=== PATIENT | male | born 1965 | race Caucasian/White ===

== ENCOUNTER → 2021-01-01 12:43 | Outpatient (CLI) | payer OTHER, BC, SELFPAY ==
[2020-12-14 07:26] VITALS: BMI 27.8
--- NOTE | 2021-01-01 12:45 | MRI_ITS ---
STUDY: MRI RIGHT KNEE REASON FOR EXAM: Anterior/medial right knee pain for 3 to 4 weeks, no specific injury. TECHNIQUE: Standardized fat and water weighted pulse sequences were obtained in all 3 orthogonal planes. COMPARISON: Radiographs 12/08/2020. FINDINGS: There is a complex tear of the posterior horn/body of the medial meniscus (proton-density sagittal images 33-37; T2 coronal images 15, 16) with a small displaced fragment in the medial gutter (T2 coronal image 20). Normal hyaline cartilage of the medial femorotibial compartment. There is mild subchondral bone edema of the medial tibial plateau (T2 coronal images 17-19), a stress phenomenon. There is mild periligamentous inflammation of the medial collateral ligament (T2 coronal image 17). Normal distal semimembranosus, gracilis and semitendinosus tendons. Normal lateral meniscus. Normal hyaline cartilage of the lateral femorotibial compartment. Normal lateral femoral condyle and tibial plateau. Normal proximal tibiofibular articulation. Normal lateral collateral (fibular) ligament. Normal popliteus tendon. Normal biceps femoris tendon. Normal anterior cruciate ligament (ACL). Normal posterior cruciate ligament (PCL). Normal congruent patellofemoral articulation. Normal hyaline cartilage of the patellofemoral compartment. Normal medial and lateral patellar retinaculum. Normal visualized quadriceps tendon. Normal patellar tendon. Normal Hoffa''s fat pad. There is a very small joint effusion. There is a thin medial patellar plica. There is mild edema in the anterior and medial subcutis adipose space. The otherwise visualized osseous structures are unremarkable. MRI/Lower Ext Joint Only (Routine) IMPRESSION: Medial meniscal tear. Mild subchondral bone edema of the medial tibial plateau, a stress phenomenon. Mild periligamentous inflammation of the medial collateral ligament. Very small joint effusion. Electronically Signed: Hussain Duke MD at 14:17 EST Tel , Service support ,
== END ==
PROVIDERS: PCP Family Medicine; Referring Provider Physician Assistant Surgical; Visit Provider Physician Assistant Surgical
DX: S83.241A Other tear of medial meniscus, current injury, right knee, initial encounter (principal); X58.XXXA Exposure to other specified factors, initial encounter
CPT/HCPCS: 73721